=== PATIENT | male | born 1965 | race Caucasian/White ===

== ENCOUNTER 2022-08-10 17:12 | Emergency (ER) | payer OTHER, BC, SELFPAY ==
[2022-08-10 17:28] VITALS: BP 151/86; PULSE 62; RESP 16; TEMP 36.1; O2SAT 97
[2022-08-10 17:32] VITALS: BP 151/86; PULSE 62; RESP 16; TEMP 36.1; O2SAT 97
[2022-08-10] MEDS: ACETAMINOPHEN 500 MG TABLET 1000 MG PO (17:59)
--- NOTE | 2022-08-10 17:59 | ED.WOUNDLAC ---
HPI - Wound/Laceration General Chief Complaint: Wound/Laceration Stated Complaint: Left Hand Finger Laceration Time Seen by Provider: 08/10/22 18:05 Source: patient Mode of arrival: ambulatory Limitations: no limitations History of Present Illness HPI narrative: 57-year-old male presented for complaint of laceration to the left little finger, injury occurred this morning. States he cut the finger on glass at work. He wrapped the finger with gauze and tape and completed his work. Denies numbness, tingling or weakness. Reports more pain with bending the finger. States he had tetanus updated about 4 years, reports frequent injuries Related Data Home Medications Medication Instructions Recorded Confirmed albuterol sulfate 90 mcg/actuation 90 mcg inhalation DIRECTED 08/10/22 08/10/22 aerosol inhaler cyclobenzaprine 10 mg tablet 10 mg DIRECTED 08/10/22 08/10/22 fluticasone propionate 115 115 inh inhalation DIRECTED 08/10/22 08/10/22 mcg-salmeterol 21 mcg/actuation HFA inhaler (Advair HFA) losartan 25 mg tablet 25 mg DIRECTED 08/10/22 08/10/22 montelukast 10 mg tablet 10 mg DIRECTED 08/10/22 08/10/22 pantoprazole 40 mg tablet,delayed 40 mg PO DIRECTED 08/10/22 08/10/22 release rosuvastatin 10 mg tablet 10 mg DIRECTED 08/10/22 08/10/22 Allergies Allergy/AdvReac Type Severity Reaction Status Date / Time No Known Allergies Allergy Verified 08/10/22 17:29 Review of Systems Review of Systems: CONSTITUTIONAL: Denies body aches, fever, chills CARDIOVASCULAR: Denies chest pain, palpitations, or edema. RESPIRATORY: Denies cough or dyspnea. SKIN: per HPI MUSCULOSKELETAL: Denies back pain, joint pain, or myalgia. NEUROLOGIC: Denies headache, numbness, tingling, or weakness. All systems reviewed & are unremarkable except as noted in HPI and below PMFSH Past Medical History Medical History (Updated 08/10/22 @ 19:31 by Selina Hardin APRN) Hypertension Comments At time of signature, I have reviewed and agree with nursing past medical, surgical, social and family history unless otherwise noted. Please see nursing chart for further information. There is no relevant family history pertinent to the presenting complaint Exam Narrative: GENERAL: Well-appearing CHEST: Speaks in full sentences. No respiratory distress. HEART: Regular rate and rhythm. Normal and equal peripheral pulses. EXTREMITIES: skin avulsion on the left hand 5th digit, ulnar aspect; 3 cm x 1.5 cm, minimal active bleeding; no flap. Limited ROM to finger due to pain. Hand has normal strength and sensation, pulse palpable and equal bilaterally, skin warm, dry, pink. Capillary refill less than 3 seconds. SKIN: Warm, dry, no rash. NEURO: Alert and oriented x3. PSYCH: Normal mood and affect Course Course Emergency Course: Patient is aware of diagnosis, understands and agrees to treatment plan. Anticipatory guidance given. Patient agrees to follow-up as directed and is aware of reasons to seek care at the emergency department. Portions of this record may have been created with voice recognition software Level of Care: Express Care Visit Vital Signs Vital signs: Vital Signs Temperature 97 F L 08/10/22 17:28 Pulse Rate 62 08/10/22 17:28 Respiratory Rate 16 08/10/22 17:28 Blood Pressure 151/86 H 08/10/22 17:28 Pulse Oximetry 97 08/10/22 17:28 Oxygen Delivery Room Air 08/10/22 17:28 Temperature 97 F L 08/10/22 17:32 Pulse Rate 62 08/10/22 17:32 Respiratory Rate 16 08/10/22 17:32 Blood Pressure 151/86 H 08/10/22 17:32 Pulse Oximetry 97 08/10/22 17:32 Oxygen Delivery Room Air 08/10/22 17:32 Reviewed Procedures Laceration left 5th digit: ====== Skin Level ====== ====== Subcutaneous Layer ====== ====== Muscle Layer ====== ====== Tendon Layer ====== Dressing: Skin avulsion 3x1.5cm to left 5th digit ulnar aspect; wound cleansed. VADIM acosta
== END 2022-08-10 18:21 | disposition home or self-care (01) ==
PROVIDERS: Emergency Provider Nurse Practitioner Family
DX: S61.207A Unspecified open wound of left little finger without damage to nail, initial encounter (principal); W25.XXXA Contact with sharp glass, initial encounter; Y99.0 Civilian activity done for income or pay; I10 Essential (primary) hypertension
CPT/HCPCS: 29130; 99213; A9270; G0463